=== PATIENT | female | born 1990 | race Caucasian/White ===

== ENCOUNTER → 2021-03-28 12:03 | Outpatient (CLI) | payer OTHER, SELFPAY ==
[2021-03-31 19:43] LABS: HPV APTIMA, High Risk Negative (Negative); HPV Reflexed? YES, CHARGE PATIENT
== END ==
PROVIDERS: PCP Family Medicine; Referring Provider Family Medicine; Visit Provider Family Medicine
DX: Z01.419 Encounter for gynecological examination (general) (routine) without abnormal findings (principal)
CPT/HCPCS: 87624; 88175; G0145